=== PATIENT | male | born 1980 | race African-American/Black ===

== ENCOUNTER 2017-11-14 06:57 | Emergency (ER) | payer OTHER ==
[2017-11-14] MEDS: IBUPROFEN 800 MG TAB PO (08:07)
== END 2017-11-14 10:27 | disposition home or self-care (01) ==
LOC: FTE 06:57
DX: S56.912A Strain of unspecified muscles, fascia and tendons at forearm level, left arm, initial encounter (principal); X58.XXXA Exposure to other specified factors, initial encounter; Y92.9 Unspecified place or not applicable; Z87.891 Personal history of nicotine dependence
CPT/HCPCS: 73090; 99283-25